=== PATIENT | male | born 1980 | race Caucasian/White ===

== ENCOUNTER 2017-11-05 15:30 | Inpatient (IN) | payer OTHER, MEDICAID ==
[~2017-11-05] VITALS: Ht 188 cm; Wt 74.8 kg
[~2017-11-05 15:30] MED LIST: HYDROCODON-ACE1 EAC8 PO; TAMSULOSIN HCL0.4 MG PO; TRAMADOL 50 MG50 MG PO
[2017-11-05 15:41] VITALS: BP 150/87
[2017-11-05 16:19] LABS: INFLUENZA A ANTIGEN None Detected (None Detect); INFLUENZA B ANTIGEN None Detected (None Detect)
[2017-11-05 16:20] LABS: ABSOLUTE BASOPHILS 0.1 thou/uL (0.0-0.2); ABSOLUTE LYMPHOCYTES 1.4 thou/uL (0.8-5.3); ABSOLUTE MONOCYTES 0.9 thou/uL (0.0-1.2); ABSOLUTE NEUTROPHILS 11.3 thou/uL (1.6-8.1); BASOPHILS 0.6 %; EOSINOPHILS 0.2 %; HEMATOCRIT 41.4 % (42.0-52.0); HEMOGLOBIN 14.2 gm/dL (14.0-18.0); MCH 35.4 pg (26.0-34.0); MCHC 34.2 g/dL (28.0-37.0); MCV 103.5 fL (80.0-100.0); MONOCYTES 6.9 %; MPV 8.1 fl. (7.2-11.1); NUCLEATED RBCS 0 /100WBC; PLATELET COUNT* 249 thou/uL (150-400); POLYS 82.3 %; RDW-CV 15.7 % (10.5-14.5); WBC 13.8 thou/uL (4.0-11.0)
[2017-11-05 16:28] LABS: AMP/METHAMP Negative (Negative); BARBITURATES Negative (Negative); BENZODIAZEPINES Negative (Negative); COCAINE Negative (Negative); METHADONE Negative (Negative); OPIATES Negative (Negative); PCP Negative (Negative); THC POSITIVE (Negative)
[2017-11-05 16:47] LABS: ACETAMINOPHEN < 2 ug/mL (10-30); ALCOHOL < 10 mg/dL (<10); SALICYLATE < 2.8 mg/dL (2.8-20.0)
[2017-11-05 16:51] LABS: ALBUMIN 2.6 g/dL (3.4-5.0); CALCIUM 7.8 mg/dL (8.5-10.1); CREATININE 1.7 mg/dL (0.6-1.3); POTASSIUM 3.1 mmol/L (3.5-5.1); TOTAL BILIRUBIN 1.8 mg/dL (<0.1-1.0)
[2017-11-05 17:08] LABS: BE -17.3 mmol/L (-2 to +3); PCO2 < 17.0 mmHg (35.0-45.0); PO2 119.2 mmHg (75.0-100.0); pH 7.306 (7.340-7.450)
[2017-11-05 17:16] LABS: INR 1.1; PROTIME 10.5 Seconds (9.20-11.50)
[2017-11-05 18:14] LABS: URINE BILIRUBIN NEGATIVE (Negative); URINE BLOOD 1+ (Negative); URINE CLARITY CLEAR; URINE COLOR YELLOW; URINE GLUCOSE-RANDOM NEGATIVE (Negative); URINE KETONES 1+ (Negative); URINE LEUKOCYTES-REFLEX NEGATIVE (Negative); URINE NITRITE-REFLEX NEGATIVE (Negative); URINE PROTEIN TRACE (Negative); URINE SPECIFIC GRAVITY >= 1.030 (1.005-1.030); URINE UROBILINOGEN 0.2 E.U./dl (0.2-1.0)
[2017-11-05 18:23] LABS: SQUAMOUS 0-3 Few /LPF (0-3)
[2017-11-05 18:24] LABS: BACTERIA-REFLEX None Seen /HPF (None Seen); CASTS None Seen /LPF (None Seen); CRYSTALS None Seen /LPF (None Seen); MUCUS 0-3 Light strn/LPF (None Seen); URINE RBC 0-2 Rare /HPF (0-2); URINE WBC-REFLEX None Seen /HPF (0-5)
[2017-11-05 19:27] LABS: MAGNESIUM 1.2 mg/dL (1.8-2.4)
[2017-11-05 19:56] VITALS: BP 136/84
[2017-11-05 20:15] VITALS: BP 136/76
[2017-11-05 21:00] VITALS: BP 111/85
[2017-11-05 22:00] VITALS: BP 133/83
[2017-11-05 23:00] VITALS: BP 127/79
[2017-11-05 23:48] LABS: CALCIUM 6.7 mg/dL (8.5-10.1); CREATININE 1.5 mg/dL (0.6-1.3); POTASSIUM 3.3 mmol/L (3.5-5.1)
[2017-11-06] VITALS (23 sets, daily range): BP systolic 88–121; BP diastolic 36–79
[2017-11-06 00:15] LABS: PHOSPHORUS* 4.5 mg/dL (2.5-4.9); URIC ACID* 10.1 mg/dL (2.6-7.2)
[2017-11-06 03:35] LABS: HEMATOCRIT 32.6 % (42.0-52.0); MCH 36.6 pg (26.0-34.0); MCHC 35.3 g/dL (28.0-37.0); MCV 103.7 fL (80.0-100.0); MPV 7.8 fl. (7.2-11.1); NUCLEATED RBCS 0 /100WBC; RBC 3.14 mil/uL (4.50-6.00); RDW-CV 15.4 % (10.5-14.5); WBC 10.4 thou/uL (4.0-11.0)
[2017-11-06 03:47] LABS: CALCIUM 6.4 mg/dL (8.5-10.1); CREATININE 1.4 mg/dL (0.6-1.3); MAGNESIUM 2.3 mg/dL (1.8-2.4); POTASSIUM 3.3 mmol/L (3.5-5.1)
[2017-11-06 03:48] LABS: HEMOGLOBIN 11.5 gm/dL (14.0-18.0); PLATELET COUNT* 169 thou/uL (150-400)
[2017-11-06 06:25] LABS: ABSOLUTE LYMPHOCYTES 1.2 thou/uL (0.8-5.3); ABSOLUTE MONOCYTES 0.1 thou/uL (0.0-1.2)
[2017-11-06 06:26] LABS: ANISOCYTOSIS 1+; PLATELET ESTIMATE ADEQUATE; POIKILOCYTOSIS 1+
[2017-11-06 09:07] LABS: BE 1.6 mmol/L (-2 to +3); HCO3 23.6 mmol/L (22.0-26.0); PO2 74.3 mmHg (75.0-100.0); pH 7.528 (7.340-7.450)
[2017-11-06 09:38] LABS: ALBUMIN 1.8 g/dL (3.4-5.0); CALCIUM 6.2 mg/dL (8.5-10.1); CREATININE 1.1 mg/dL (0.6-1.3); DIRECT BILIRUBIN 0.6 mg/dL (<0.1-0.3); MAGNESIUM 1.9 mg/dL (1.8-2.4); POTASSIUM 3.5 mmol/L (3.5-5.1); TOTAL BILIRUBIN 1.4 mg/dL (<0.1-1.0); TOTAL PROTEIN 4.8 g/dL (6.4-8.2); URIC ACID* 8.7 mg/dL (2.6-7.2)
--- NOTE | 2017-11-06 13:33 | EKG ---
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
--- NOTE | 2017-11-06 14:02 | 2DMMODE ---
[place] [address] 2 D/M-MODE ECHOCARDIOGRAM Name: MARIA M BETTS Room: [facility] IN [facility]#: [id number] Admission: 11/05/17 Attend Phys: Debra Cast Discharge: Date of : 80 Date of Service: 11/06/17 1401 Report #: [id number] THIS REPORT FOR: //name// APPROVED REPORT Study performed: 11/06/2017 10:49:54 EXAM: Comprehensive 2D, Doppler, and color-flow Echocardiogram Patient Location: In-Patient Room #: [facility] Status: routine BSA: 1.92 HR: 117 bpm BP: 106/74 mmHg Rhythm: NSR Other Information Study Quality: Good Indications Congestive Heart Failure 2D Dimensions LVEF(%): 79.30 (>50%) IVSd: 8.40 (7-11mm) LVOT Diam: 20.22 (18-24mm) LVDd: 51.75 mm PWd: 9.15 (7-11mm) Ascending Ao: 32.11 (22-36mm) LVDs: 26.80 (25-40mm) Aortic Root: 34.59 mm Ware's LVEF: 79.30 % Volumes Left Atrial Volume (Systole) LA ESV Index: 15.90 mL/m2 Aortic Valve AoV Peak Ty.: 1.52 m/s AO Peak Gr.: 9.26 mmHg LVOT Max P.05 mmHg AO Mean Gr.: 4.75 mmHg LVOT Mean P.04 mmHg LVOT Max V: 1.33 m/s AO V2 VTI: 21.55 cm LVOT Mean V: 0.79 m/s BRYAN (VTI): 3.01 cm2 LVOT V1 VTI: 20.18 cm Mitral Valve E/A Ratio: 1.17 [place] [address] 2 D/M-MODE ECHOCARDIOGRAM Name: MARIA M BETTS Room: [address] IN .R.#: [id number] Admission: 11/05/17 Attend Phys: Debra Cast Discharge: Date of : 80 Date of Service: 11/06/17 1401 Report #: [id number] MV Decel. Time: 281.78 ms MV E Max Ty.: 0.90 m/s MV PHT: 81.72 ms MVA (PHT): 2.69 cm2 TDI E/Lateral E': 8.18 E/Medial E': 6.92 Medial E' Ty.: 0.13 m/s Lateral E' Ty.: 0.11 m/s Pulmonary Valve PV Peak Ty.: 1.19 m/s PV Peak Gr.: 5.71 mmHg Left Ventricle The left ventricle is normal size. There is normal LV segmental wall motion. There is normal left ventricular wall thickness. Left ventricular systolic function is normal. The left ventricular ejection fraction is within the normal range. LVEF is 60-65%. The left ventricular diastolic function is normal. Right Ventricle The right ventricle is normal size. The right ventricular systolic function is normal. Atria The left atrium size is normal. The right atrium size is normal. Aortic Valve The aortic valve is normal in structure. No aortic regurgitation is present. There is no aortic valvular stenosis. Mitral Valve The mitral valve is normal in structure. There is no mitral valve regurgitation noted. No evidence of mitral valve stenosis. Tricuspid Valve The tricuspid valve is normal in structure. Unable to assess PA pressure. Trace tricuspid regurgitation. Pulmonic Valve The pulmonary valve is normal in structure. There is no pulmonic valvular regurgitation. Great Vessels The aortic root is normal in size. IVC [place] [address] 2 D/M-MODE ECHOCARDIOGRAM Name: MARIA M BETTS Room: [address] IN M.R.#: [id number] Admission: 11/05/17 Attend Phys: Debra Cast Discharge: Date of : 80 Date of Service: 11/06/17 1401 Report #: [id number] collapses with >50% inspiration Pericardium There is no pericardial effusion. <Conclusion> LVEF is 60-65%. There is normal LV segmental wall motion. No aortic regurgitation is present. There is no aortic valvular stenosis. There is no mitral valve regurgitation noted. No evidence of mitral valve stenosis. <ELECTRONICALLY SIGNED> By: Cruz Comer MD, FACC 11/06/17 140 140 140 Cruz Comer MD, FACC /INF
[2017-11-06 17:12] LABS: GLYCOHEMOGLOBIN (HGB A1C) 5.1 % (4.8-5.6)
[2017-11-06 17:12] LABS: IgA 601 mg/dL (90-386); IgG 782 mg/dL (700-1600); IgM 52 mg/dL (20-172)
[2017-11-07] VITALS (12 sets, daily range): BP systolic 92–122; BP diastolic 53–86
[2017-11-07 05:09] LABS: CALCIUM 6.4 mg/dL (8.5-10.1); CREATININE 0.7 mg/dL (0.6-1.3); MAGNESIUM 1.6 mg/dL (1.8-2.4); PHOSPHORUS* 1.9 mg/dL (2.5-4.9); POTASSIUM 3.3 mmol/L (3.5-5.1); TOTAL BILIRUBIN 1.5 mg/dL (<0.1-1.0); TOTAL PROTEIN 4.9 g/dL (6.4-8.2); URIC ACID* 6.2 mg/dL (2.6-7.2)
--- NOTE | 2017-11-07 13:55 | CON ---
[address] [address] CONSULTATION Name: MARIA M BETTS Room: [address] IN M.R.#: [id number] Admission: 11/05/17 Attend Phys: Alessandra Evans Discharge: Date of : 80 Report #: [id number] THIS REPORT FOR: //name// CC: EDY physician/PCP Debra Cast LOCATION: The patient is in ICU bed 5 at [facility]. REASON FOR CONSULTATION: I am asked to see this 37-year-old gentleman at the request of Dr. Cast for acute kidney injury. CHIEF COMPLAINT: Pain. HISTORY OF PRESENT ILLNESS: He came to the ED complaining of pain in his lower extremities for a couple of weeks. He also was short of air. He said he got to the point where he could not even walk a few steps. PAST MEDICAL HISTORY: Facial laceration. He has a history of kidney stones. He has had shoulder surgery. He has fatty infiltration of the liver on CT scan. FAMILY HISTORY: Positive for COPD and tobacco use. No renal diseases in family members. SOCIAL HISTORY: He is an everyday tobacco user. He smokes cigarettes. He has a 1/2 pack per day use. ALLERGIES: MEPERIDINE, BUTORPHANOL TARTRATE AND KETOROLAC. HOME MEDICATIONS: Tramadol 50 mg t.i.d. p.r.n., not presently taking. REVIEW OF SYSTEMS: HEENT: He has had no recent changes in vision or hearing. CARDIAC: He has a history of hypertension. No other cardiovascular diseases. PULMONARY: He has been short of air with any exertion. GASTROINTESTINAL: No nausea, vomiting, diarrhea. Does show some slight guarding. GENITOURINARY: Acute kidney injury, albeit mild. He has never had to dialyze in the past. He does have a history of kidney stones. He has had no difficulty voiding. No problems recently over the past few years with his kidney stones. HEMATOLOGIC AND LYMPHATIC: The patient is not anemic. He does have a leukocytosis of 13,800; platelets are 249,000. MUSCULOSKELETAL: Nontender. ENDOCRINE: Negative for hypothyroidism or known diabetes. PSYCHIATRIC: Negative, but there is some possible history of excessive alcohol intake. NEUROLOGIC: He has had no TIA, CVA, Parkinson disease [place] [address] CONSULTATION Name: MARIA M BETTS Room: [address]#: [id number] Admission: 11/05/17 Attend Phys: Alessandra Evans Discharge: Date of : 80 Report #: [id number] PHYSICAL EXAMINATION: VITAL SIGNS: At present show a temperature of 36.9, heart rate in the low 100s, respirations 15, blood pressure 114/74. He has a pulse oximetry of 94%. His intake and output 4693 in, 950 out thus far today. HEENT: He is atraumatic, normocephalic. NECK: Supple. CHEST: Clear. HEART: S1, S2, no rubs. ABDOMEN: Soft, distended, but normal bowel sounds. No masses. EXTREMITIES: Show good perfusion, no edema. Negative Homans. NEUROLOGIC: Cranial nerves, sensory, motor appear to be at his baseline. Remainder of his exam is unremarkable except for some delayed responses and perhaps some encephalopathy. LABORATORY DATA: Shows a white count of 10,400; hemoglobin 11.5; hematocrit 32.6; platelets 169,000. Coags show a PT of 10.5, INR 1.1. Urine shows a trace of protein, 1+ ketones, 1+ blood, negative for nitrites, bilirubin, urobilinogen, rbc's, wbc's and squamous cells. His C. diff toxin gene is ordered and pending. Most recent ABG: A pH 7.30, pCO2 less than 17, bicarbonate 6, O2 sat 96.7%. His lipase is 338. Vitamin B12 of 926. Albumin 2.6. Troponin less than 0.06. Ammonia level 23. CK down to 587. Liver function studies are not increased. Magnesium 1.2 and low calcium 7.8, phosphorus 5.0. IMPRESSION: 1. Acute kidney injury in the setting of lactic acidosis and hypotension and decreased renal perfusion. 2. Sepsis syndrome, source unclear. 3. Rhabdomyolysis with elevated CPK. 4. Acute kidney injury due to rhabdomyolysis, hypotension and decreased renal perfusion. 5. Electrolyte disturbance including hypokalemia, hypomagnesemia. 6. Volume depletion. PLAN: Creatinine is already down to 1.1. He is improving. He is, however, requiring some pressors at this time. His blood pressure dipped into the 70s. I am not sure what set this off, certainly as he is awakening, he is telling me more and it appears that he did not have much to eat or drink for several days. At this point, would continue pressors, fluid resuscitation and follow labs. Apparently, there is a significant amount of alcohol intake and he does have fatty liver per his CT scan. His hemoglobin is low normal range at 11.4, [facility] [address] [place] [address] CONSULTATION Name: MARIA M BETTS Room: [address] IN [facility].#: [id number] Admission: 11/05/17 Attend Phys: Alessandra Evans Discharge: Date of : 80 Report #: [id number] hematocrit 32.6, white count 10,400, platelets adequate. IgG, IgA, IgM and JASON studies are pending. Further recommendations will follow. <ELECTRONICALLY SIGNED> By: Dee Dee Foster MD 11/07/17 1355 1650 [id number] Dee Foster MD /nt
[2017-11-07 14:51] LABS: HEMOGLOBIN 10.4 gm/dL (14.0-18.0); MCH 36.6 pg (26.0-34.0); MCHC 34.6 g/dL (28.0-37.0); MCV 105.7 fL (80.0-100.0); MPV 8.9 fl. (7.2-11.1); RBC 2.83 mil/uL (4.50-6.00); RDW-CV 15.8 % (10.5-14.5); WBC 8.3 thou/uL (4.0-11.0)
[2017-11-08] VITALS: BP 117/76
[2017-11-08 04:00] VITALS: BP 134/86
[2017-11-08 06:46] LABS: HEMATOCRIT 29.1 % (42.0-52.0); HEMOGLOBIN 10.2 gm/dL (14.0-18.0); MCH 36.6 pg (26.0-34.0); MCHC 34.9 g/dL (28.0-37.0); MCV 104.9 fL (80.0-100.0); MPV 8.5 fl. (7.2-11.1); RBC 2.77 mil/uL (4.50-6.00); RDW-CV 15.1 % (10.5-14.5); WBC 7.4 thou/uL (4.0-11.0)
[2017-11-08 06:55] LABS: INR 1.1; PROTIME 10.6 Seconds (9.20-11.50)
[2017-11-08 07:00] LABS: ALBUMIN 2.1 g/dL (3.4-5.0); CREATININE 0.6 mg/dL (0.6-1.3); MAGNESIUM 1.7 mg/dL (1.8-2.4); POTASSIUM 3.6 mmol/L (3.5-5.1); TOTAL BILIRUBIN 1.2 mg/dL (<0.1-1.0); TOTAL PROTEIN 5.2 g/dL (6.4-8.2)
[2017-11-08 08:05] VITALS: BP 125/88
[2017-11-08 12:15] VITALS: BP 149/82
[2017-11-08 17:20] LABS: % SATURATION 22 % (20-39); IRON 31 ug/dL (50-175)
[2017-11-08 17:25] VITALS: BP 119/79
[2017-11-08 20:00] VITALS: BP 106/48
[2017-11-09 00:02] VITALS: BP 113/73
[2017-11-09 04:00] VITALS: BP 120/75
[2017-11-09 07:56] VITALS: BP 114/78
[2017-11-09 09:10] LABS: GLOBULIN TOTAL 2.4 g/dL (2.2-3.9); M-SPIKE Not Observed g/dL (Not Observed)
--- NOTE | 2017-11-09 10:39 | CON ---
[address] [address] CONSULTATION Name: MARIA M BETTS Room: [address] IN M.R.#: [id number] Admission: 11/05/17 Attend Phys: Alessandra Evans Discharge: Date of : 80 Report #: [id number] THIS REPORT FOR: //name// CC: EDY physician/PCP Debra Cast DATE OF SERVICE: 11/06/2017 HISTORY OF PRESENT ILLNESS: This is a 37-year-old male patient who indicates that he started getting weak in all 4 extremities about a month ago or maybe longer than that. He is a very poor and somewhat reluctant historian. He indicates these ambulation difficulties started spontaneously without any trauma. He was still able to go to the bathroom by holding on to something. 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 He drinks significant amount of alcohol. I cannot tell how much he actually drank because he will not give me an exact figure. He said couple of drinks a day, but the family has indicated it is more than that and his laboratory will correlate with family's history. REVIEW OF SYSTEMS: Indicate that this patient is pretty profoundly weak in all 4 extremities. He apparently was admitted with lactic acidosis and do have rhabdo. He does not know whether he is any better or not. He had some nausea, vomiting also before he came in. This is the 14-point review of systems, which I can get on him. PAST MEDICAL HISTORY: Negative for any stroke. FAMILY HISTORY: According to him is negative for any congenital epilepsy. SOCIAL HISTORY: He drinks alcohol daily. He would not specify how much he drinks. He also smokes. PHYSICAL EXAMINATION: Indicated he is pretty sleepy, but he wakes up. When he wakes up, he follow commands. His speech looks intact, but he is not very cooperative with the examination otherwise. He is very reluctant to talk about how much alcohol he drinks and those things. He moves all 4 extremities, but he is pretty profoundly weak in all 4 extremities. His position sense is intact and he says he can appreciate the touch in all 4 extremities. So it appeared to be predominantly or exclusively motor deficit. His reflexes could not be elicited in the lower extremities. His blood pressure is 114/71, respirations 17, pulse is 111. His MCV is high. His bilirubin is high. His HD is high. His CPK and LD is high. His albumin is very low at 1.8. IMPRESSION: This patient's clinical presentation is consistent with diffuse polyneuropathy. It is most likely secondary to his heavy alcoholism. Other etiologies need to [place] [address] CONSULTATION Name: MARIA M BETTS Room: [address] IN .R.#: [id number] Admission: 11/05/17 Attend Phys: Alessandra Evans Discharge: Date of : 80 Report #: [id number] I discussed with the patient his situation that he must live a healthy lifestyle. He understands that I would like to do a CT of the head and neck and later on may have to do an MRI, but we will also see how he does with supportive treatment for alcohol withdrawal. I told him that he needs to be manuel and the consequences which can occur if he is not manuel with the history. It is going on for a month or longer. He needs further workup and I also think he needs EMG, but we do not have a machine here. I also talked to him that he may need LP because it will be difficult to exclude Guillain-Scottdale syndrome. He needs B1 and thiamine, which he is already getting. RECOMMENDATIONS: I discussed all of it with the patient and discussed our plan and the limitations and he understood all those and he wants to follow this plan and we will do that. Thank you very much for this referral. <ELECTRONICALLY SIGNED> By: Ochoa Mcgill MD 11/09/17 1039 1517 08Ochoa Mcgill MD /natalie
[2017-11-09 12:29] VITALS: BP 134/89
[2017-11-09 19:12] LABS: METANEPHRINE-PL 102 pg/mL (0-62); NORMETANEPHRINE - PL 528 pg/mL (0-145)
[2017-11-09 20:00] VITALS: BP 133/90
[2017-11-10 00:03] VITALS: BP 117/76
[2017-11-10 04:00] VITALS: BP 112/74
[2017-11-10 08:00] VITALS: BP 144/83
[2017-11-10 12:00] VITALS: BP 133/89
[2017-11-10 16:00] VITALS: BP 132/78
[2017-11-10 20:00] VITALS: BP 140/83
[2017-11-11] VITALS: BP 121/78
[2017-11-11 04:00] VITALS: BP 140/79
[2017-11-11 08:00] VITALS: BP 124/77
[2017-11-11 09:58] LABS: KAPPA FREE LIGHT CHAINS 31.3; LAMBDA FREE LIGHT CHAINS 39.8
[2017-11-11 12:00] VITALS: BP 140/92
[2017-11-11 16:00] VITALS: BP 129/89
[2017-11-11 19:47] VITALS: BP 127/85
[2017-11-12] VITALS (7 sets, daily range): BP systolic 108–126; BP diastolic 70–87
[2017-11-12 05:38] LABS: HEMATOCRIT 30.6 % (42.0-52.0); HEMOGLOBIN 10.6 gm/dL (14.0-18.0); MCHC 34.5 g/dL (28.0-37.0); MCV 104.2 fL (80.0-100.0); MPV 8.7 fl. (7.2-11.1); PLATELET COUNT* 225 thou/uL (150-400); RBC 2.93 mil/uL (4.50-6.00); RDW-CV 15.6 % (10.5-14.5); WBC 7.7 thou/uL (4.0-11.0)
[2017-11-12 05:58] LABS: ALBUMIN 1.8 g/dL (3.4-5.0); CALCIUM 8.4 mg/dL (8.5-10.1); CREATININE 0.7 mg/dL (0.6-1.3); MAGNESIUM 1.6 mg/dL (1.8-2.4); POTASSIUM 3.4 mmol/L (3.5-5.1); TOTAL BILIRUBIN 0.8 mg/dL (<0.1-1.0)
[2017-11-12 07:07] LABS: ABSOLUTE BASOPHILS 0.1 thou/uL (0.0-0.2); ABSOLUTE LYMPHOCYTES 1.9 thou/uL (0.8-5.3); ABSOLUTE MONOCYTES 0.7 thou/uL (0.0-1.2); MACROCYTES 1+; PLATELET ESTIMATE ADEQUATE
[2017-11-12 16:12] LABS: MAGNESIUM 2.2 mg/dL (1.8-2.4); POTASSIUM 3.6 mmol/L (3.5-5.1)
[2017-11-12 16:16] LABS: BF RBC <1000 /mm3; TOTAL CELL COUNT 759 /mm3
[2017-11-12 16:17] LABS: COLOR YELLOW; TOTAL VOLUME 500 ml
[2017-11-12 16:18] LABS: CLARITY CLEAR
[2017-11-12 16:29] LABS: BF EOSINOPHILS 1 %; BF LYMPHOCYTES 45 %; BF MONOCYTES 31 %; BF POLYS 23 %; SOURCE LEFT PLEURAL
[2017-11-13 04:00] VITALS: BP 119/80
[2017-11-13 07:45] VITALS: BP 111/78
--- NOTE | 2017-11-13 08:45 | CON ---
[address] [address] CONSULTATION Name: MARIA M BETTS Room: [address] IN M.R.#: [id number] Admission: 11/05/17 Attend Phys: Alessandra Evans Discharge: Date of : 80 Report #: [id number] THIS REPORT FOR: //name// CC: [facility] physician/PCP Jada Cast MD PULMONARY CONSULTATION ATTENDING PHYSICIAN: Debra Cast MD INDICATION FOR CONSULTATION: Pleural effusions and fever. CLINICAL SUMMARY: The patient is a 37-year-old male, a smoker and drinker was admitted to the hospital about a week ago after a 3-week history of shortness of breath and also some atypical pleuritic chest pain. He has had some proximal leg weakness. He feels like his legs are getting weaker getting up and moving off the couch, trying to walk up flight of stairs or walk to the bus station. 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 He came in dehydrated with hemoglobin of myoglobinuria and his creatinine was 1.6. CK was elevated. He was given IV fluids. Urine output improved and his creatinine normalized. His CK also normalized. Chest x-ray on 11/07/2017 showed central line in place, also with bilateral small pleural effusions. He had a CT of the chest done yesterday on 11/11/2017 and he had moderate to moderately large right pleural effusion and then mild to moderate left pleural effusion. There was 5.8 cm from the skin to lung tissue on the right, effusion and 3.6 cm on the left. The patient is worse when he lies down and tries to take a good deep breath. He has had an occasional dry cough. He denies any fever, chills or sweats. It should be noted that his chest x-ray on 11/05/2017 was totally within normal limits other than having a central line in place. No troubles with the central line. He is due for a diagnostic and therapeutic right-sided thoracentesis this afternoon and possibly left-sided thoracentesis at some point in time. He has had some abdominal pain, which also brought him in. CT of the abdomen and pelvis other than showing a diffuse fatty liver was relatively unremarkable. No significant adenopathy was noted. PAST MEDICAL HISTORY: He has had abdominal pain. He has had previous facial laceration. He has had nausea and vomiting. He has had rhabdomyolysis, sepsis syndrome. ALLERGIES: He has allergies or intolerance from STADOL, which gives him nausea. Also, TORADOL, which gives him nausea and then MEPERIDINE from DEMEROL again which gave him nausea. No definite skin rash or reactions noted otherwise. FAMILY HISTORY: Negative [place] [address] CONSULTATION Name: MARIA M BETTS Room: [address] IN .R.#: [id number] Admission: 11/05/17 Attend Phys: Alessandra Evans Discharge: Date of : 80 Report #: [id number] SOCIAL HISTORY: He is . He lives on his own. He describes himself as a couch potato, does not get up and move very much. 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 He drinks about a half a pint to a pint of liquor every day and also smokes about a half pack of cigarettes every day. He has done that for the last 20 years. Would not delineate length of time drinking. REVIEW OF SYSTEMS: A 14-point review of systems reviewed and negative except for pertinent positives noted in the HPI. PHYSICAL EXAMINATION: GENERAL: A 37-year-old male who is in mild distress at the bedside. Other than that is cooperative and oriented to person, place and time and talk to me in full sentences. VITAL SIGNS: Blood pressure is 126/84 on no pressors, heart rate is 104, respirations are 16 on a backup rate of 16, saturation on 3 liters is 94%, temperature is 36.7 degrees. He is 6 feet 2 inches tall, weight 76 kilograms or 162 pounds, BMI is 21. HEENT: Pharynx is clear. No rash or exudate is noted. NECK: Supple, without nodes. No cervical or supraclavicular adenopathy. CHEST: Reveals dullness at the right lung base about a third of the way up and about a fourth of the way up. The left chest shows dullness with decreased breath sounds and decreased tactile fremitus. No wheeze or rhonchi is noted. CARDIOVASCULAR: Regular rate and rhythm without murmur, gallop or rub. Heart rate is 104. ABDOMEN: Soft, without hepatosplenomegaly. No ascites noted. EXTREMITIES: Without cyanosis, clubbing or edema. NEUROLOGIC: Grossly intact. LABORATORY DATA: From today, 11/12/2017 shows hemoglobin 10.6, white count 7700, MCV is 104, platelets are 225,000; previous platelets were 130,000; normal differential was noted. ESR is 69 from a day or so ago. Sodium is 135, potassium is 3.4 being repleted, carbon dioxide is 25, BUN is 6, creatinine is 0.7. Previous creatinine was 1.6, calcium is 8.4, magnesium is 1.6, albumin is down to 1.8, total protein 6.0, and ALT is low at 21. Previous ABG upon admit when he is breathing on room air showed a pO2 of 119, a pH of 7.30, pCO2 was 20, bicarbonate was 6, his base excess was negative 17, and O2 sat was 96%. Then, repeat on 11/06/2017 at 9:00 a.m. in the morning, pO2 of 74, pH 7.52, pCO2 is 29, bicarbonate was 23, and sat was 94%. Carboxyhemoglobin was only 0.3, methemoglobin was 0.1. Chest x-ray again from 11/05/2017 was within normal limits. On 11/07/2017, lines were in place without pneumothorax and he has small bilateral pleural effusions at that time and small bibasilar infiltrates, and then CT of the chest from yesterday which I reviewed with radiology shows moderate to large right pleural effusion and moderate left pleural effusion again with above-noted. No significant adenopathy is noted on the CT chest in the mediastinal or hilar adenopathy and even on the CT abdomen when he was admitted, no significant ascites [place] [address] CONSULTATION Name: MARIA M BETTS Room: [address] ADM IN .R.#: [id number] Admission: 11/05/17 Attend Phys: Alessandra Evans Discharge: Date of : 80 Report #: [id number] retroperitoneal adenopathy was noted. IMPRESSION: New onset bilateral pleural effusions, etiology unclear, could be either related to fluid overload, even though his echocardiogram was normal, no pulmonary hypertension. Other possibilities whether this is fever and parapneumonic effusion, I doubt lymphoma or anything malignant at least at this time with a rapid onset of his effusions, but we will keep that as a possibility. Again, no definite evidence for lymphoma at least at this time. PLAN: He is going to undergo a diagnostic and therapeutic right-sided thoracentesis afternoon, possibly left-sided also. We will send chemistries and cultures and cytology and workup his pleural effusions. If they recur and come back, he may need a right-sided VATS for tissue diagnosis and possibly therapeutic. May need a course of steroids at some point in time, but we will continue follow after he has his pleural effusion tapped and we get the cultures back. Obviously needs to discontinue smoking and drinking. I discussed that with him today in the consult. May need a trial of incentive spirometry. Again, I am not sure whether steroid trial will be useful or not at least at this time. We will wait and see what the pleural fluid shows first. May need a workup for collagen vascular abnormalities, also with the diagnosis remains elusive. Thanks again for allowing us to participate in this man's care. We will follow up along with you. <ELECTRONICALLY SIGNED> By: Abdiel Cordero MD 11/13/17 0845 1415 [id number] Cordero MD /nt
[2017-11-13 10:12] LABS: BODY FLUID AMYLASE 20 U/L (()); BODY FLUID LDH 202 IU/L (()); BODY FLUID PROTEIN 2.4 g/dL (())
[2017-11-13 10:12] LABS: BODY FLUID AMYLASE 21 U/L (()); BODY FLUID LDH 183 IU/L (())
[2017-11-13 12:06] LABS: BODY FLUID PH 7.8 (Not Estab.)
[2017-11-13 12:06] LABS: BODY FLUID PH 7.9 (Not Estab.)
[2017-11-13 15:11] LABS: DOPAMINE 384 pg/mL (0-48); EPINEPHRINE 80 pg/mL (0-62); NOREPINEPHRINE 1765 pg/mL (0-874)
[2017-11-13 16:21] VITALS: BP 116/73
[2017-11-13 21:00] VITALS: BP 126/86
[2017-11-13 23:48] VITALS: BP 117/80
[2017-11-14] MEDS ORDERED: PRENATAL PO (07:24)
[2017-11-14] MEDS ORDERED: VITAMIN B-1100 M1 PO (07:24)
[2017-11-14] MEDS ORDERED: AUGMENTIN 875-1 EACH PO (07:27)
[2017-11-14 08:00] VITALS: BP 124/83
[2017-11-14 09:53] VITALS: BP 124/83
[2017-11-14 12:47] VITALS: BP 124/83
--- NOTE | 2017-11-14 12:49 | CNG ---
[address] [address] CYTO-NONGYN REPORT PROCEDURE Name: MARIA M SOLER Room: [address] IN [facility].#: [id number] Admission: 11/05/17 Date of : 80 Discharge: Report #: [id number] Path Case #: [id number] CYTOPATHOLOGY REPORT COLLECTION DATE: 11/11/2017 RECEIVED DATE: 11/13/2017 SUBMITTING PHYS: Dr. Brian Cedeno OTHER PHYS: Dr. Jak Vásquez CLINICAL HISTORY: Left pleural effusion SPECIMEN(S) RECEIVED: A.Pleural fluid, Left * * * * * * * * * * * * FINAL DIAGNOSIS: Pleural fluid, left: - No malignant cells identified. - Reactive mesothelial cells and few inflammatory cells, predominantly chronic. (CATY:mgr; 11/14/2017) PATHOLOGIST: Jaret Lopez M.D. REPORT ELECTRONICALLY SIGNED BY: Jaret Lopez M.D. DATE/TIME: 11/14/2017 12:48 * * * * * * * * * * * * GROSS PATHOLOGY: A. Pleural fluid, Left: The specimen is submitted unfixed, labeled "SolerMaria M baires". Received by the Cytology Department is 62 mL of cloudy yellow fluid. One ThinPrep slide and a formalin fixed cell block were prepared. (lg2.) MICROFILMING DOCUMENT PREPARER(S): LEONA Tirado([facility]) INITIAL CPT CODE(S): A; 62261, 00971 Professional services performed by [facility] at [facility] [address] [place] [address] Technical services performed by [facility] at [address] [place] [address], [address], [place] [address]. [facility] [address] [place] [address], [address] [address] CYTO-NONGYN REPORT PROCEDURE Name: MARIA M SOLER Room: [address] IN M.R.#: [id number] Admission: 11/05/17 Date of : 80 Discharge: Report #: [id number] Path Case #: [id number] [place] [address] PHONE: [phone] DIRECTOR: Parag Rodriguez M.D. * * * END OF REPORT * * *
--- NOTE | 2017-11-14 13:43 | CNG ---
[address] [address] CYTO-NONGYN REPORT PROCEDURE Name: MARIA M SOLER Room: [address] IN .R.#: [id number] Admission: 11/05/17 Date of : 80 Discharge: 11/14/17 Report #: [id number] Path Case #: [id number] CYTOPATHOLOGY REPORT COLLECTION DATE: 11/12/2017 RECEIVED DATE: 11/13/2017 SUBMITTING PHYS: Dr. Brian Cedeno OTHER PHYS: Dr. Jak Vásquez CLINICAL HISTORY: Lactic acidosis, Rhabdo, severe sepsis SPECIMEN(S) RECEIVED: A.Pleural fluid, Right * * * * * * * * * * * * FINAL DIAGNOSIS: Pleural fluid, right: - No malignant cells identified. - Reactive mesothelial cells and few inflammatory cells, predominantly chronic. (CATY:mgr; 11/14/2017) PATHOLOGIST: Jaret Lopez M.D. REPORT ELECTRONICALLY SIGNED BY: Jaret Lopez M.D. DATE/TIME: 11/14/2017 13:42 * * * * * * * * * * * * GROSS PATHOLOGY: Pleural fluid, right: The specimen is submitted unfixed, labeled "Maria M Soler". Received by the Cytology Department is 35 mL out of a total volume of 800 cc of cloudy yellow fluid. One ThinPrep slide and a formalin fixed cell block were prepared. (mm 2.) CHILDCARE AIDE(S): LEONA Tirado[facility] INITIAL CPT CODE(S): A; 70299, 96341 Professional services performed [place] [facility] [place] [address] Technical services performed by [facility] at [address] [place] [address], [address] [address]. [place] [address] CYTO-NONGYN REPORT PROCEDURE Name: MARIA M SOLER Room: [address] IN M.R.#: [id number] Admission: 11/05/17 Date of : 80 Discharge: 11/14/17 Report #: [id number] Path Case #: [id number] [place] [address] [address] [place] [address] PHONE: [phone] DIRECTOR: Parag Rodriguez M.D. * * * END OF REPORT * * *
[2017-11-15 12:03] LABS: SOURCE THORACENTESIS
[2017-11-15 12:04] LABS: SOURCE THORACENTESIS
[2017-11-15 12:04] LABS: SOURCE THORACENTESIS
--- NOTE | 2017-11-17 13:57 | CON ---
[address] [address] CONSULTATION Name: MARIA M BETTS Room: [address] IN M.R.#: [id number] Admission: 11/05/17 Attend Phys: Alessandra Evans Discharge: 11/14/17 Date of : 80 Report #: [id number] THIS REPORT FOR: //name// CC: ED[facility] physician/PCP Debra Cast DATE OF SERVICE: 11/09/2017 REASON FOR CONSULTATION: Elevated IgA. REQUESTING PHYSICIAN: Dr. Cast. HISTORY OF PRESENT ILLNESS: The patient is a pleasant 37-year-old man with a history of alcohol abuse who was admitted to the hospital with complaints of lower extremity weakness. He was found to have findings consistent with rhabdomyolysis and extreme weakness of the lower extremity. Neurology consult was obtained. As a part of workup, his immunoglobulin level checked. IgG and IgM immunoglobulins levels are normal. IgA is elevated. Hematology consult is requested. The patient is feeling okay. His lower extremity weakness is getting better. He does not have complaints of weight loss, fever or chills. He admits having some night sweats last month or so. Denies nausea or vomiting. He has complaints of abdominal bloating. SOCIAL HISTORY: He is . Admits having alcohol problems. He drinks alcohol excessively. PAST MEDICAL HISTORY: Otherwise, unremarkable. PHYSICAL EXAMINATION: GENERAL: Reveals well-developed, well-nourished young man, not in acute distress. Parents at bedside. VITAL SIGNS: Blood pressure 134/89, temperature 99.2, respiration 20, heart rate is 118. HEENT: Does not reveal thrush. NECK: Supple. HEART: Normal S1 and S2. LUNGS: Clear. ABDOMEN: Somewhat distended. No organomegaly is appreciated. LOWER EXTREMITIES: No edema. LABORATORY DATA: Hemoglobin 10.2, white count 7.4, platelets 131, MCV 104.9. BUN 3 and creatinine 0.9. Uric acid 6.2. Total protein 5.2. Albumin 2.1. Serum protein electrophoresis did not show any M-spike. IgG level 782, IgA 601 and IgM 52. ASSESSMENT AND PLAN: Elevated IgA level of unclear [place] [address] CONSULTATION Name: MARIA M BETTS Room: [address] IN [facility]#: [id number] Admission: 11/05/17 Attend Phys: Alessandra Evans Discharge: 11/14/17 Date of : 80 Report #: [id number] electrophoresis does not show M-spike. I am planning to order urine protein electrophoresis and free light chain assay Thank you very much for allowing me to participate in care of this patient. <ELECTRONICALLY SIGNED> By: Jaci Handley MD 11/17/17 1357 [id number] xavi Singh
== END 2017-11-14 12:49 | disposition home or self-care (01) | DRG 872 ==
LOC: M.ERS 15:30 → M.TBA-ER 18:00 → M.ICU 18:00 → M.2W 11-07 15:17 → M.ORTHSURG 11-13 14:46
PROVIDERS: Emergency Medicine; Family Medicine; Internal Medicine; Internal Medicine Hematology & Oncology; Internal Medicine Nephrology; Nurse Practitioner Family; Personal Emergency Response Attendant; ADMIT Internal Medicine
DX: A41.9 Sepsis, unspecified organism (principal); M62.82 Rhabdomyolysis; N17.9 Acute kidney failure, unspecified; E87.2 Acidosis; J90 Pleural effusion, not elsewhere classified; R82.1 Myoglobinuria; R65.20 Severe sepsis without septic shock; E11.9 Type 2 diabetes mellitus without complications; E87.6 Hypokalemia; E83.42 Hypomagnesemia; E86.9 Volume depletion, unspecified; F17.210 Nicotine dependence, cigarettes, uncomplicated; D64.9 Anemia, unspecified; K73.9 Chronic hepatitis, unspecified; G62.1 Alcoholic polyneuropathy; M62.81 Muscle weakness (generalized); F10.10 Alcohol abuse, uncomplicated; F12.10 Cannabis abuse, uncomplicated; G44.40 Drug-induced headache, not elsewhere classified, not intractable; T40.605A Adverse effect of unspecified narcotics, initial encounter; Y92.89 Other specified places as the place of occurrence of the external cause; Z87.442 Personal history of urinary calculi; Z88.8 Allergy status to other drugs, medicaments and biological substances; Z82.5 Family history of asthma and other chronic lower respiratory diseases; Z81.2 Family history of tobacco abuse and dependence; Z23 Encounter for immunization

== ENCOUNTER 2018-01-21 09:25 | Inpatient (IN) | payer OTHER, MEDICAID ==
[~2018-01-21] VITALS: Ht 188 cm; Wt 81.6 kg
[~2018-01-21 09:25] MED LIST changes: +AUGMENTIN 875-1 EACH PO; +PRENATAL PO; +VITAMIN B-1100 M1 PO
[2018-01-21 09:45] VITALS: BP 114/90
[2018-01-21 12:21] LABS: ALBUMIN 1.6 g/dL (3.4-5.0); ANION GAP 24 mmol/L (7-16); CALCIUM 8.2 mg/dL (8.5-10.1); CHLORIDE 93 mmol/L (98-107); CO2 21 mmol/L (21-32); CREATININE 0.7 mg/dL (0.6-1.3); GLUCOSE 146 mg/dL (70-99); NT-PRO BRAIN NAT PEPTIDE 23 pg/mL (<300); POTASSIUM 4.5 mmol/L (3.5-5.1); SODIUM 138 mmol/L (136-145); TOTAL BILIRUBIN 3.9 mg/dL (<0.1-1.0); TOTAL PROTEIN 6.5 g/dL (6.4-8.2); TROPONIN-I LEVEL <0.06 ng/mL (<0.06)
[2018-01-21 12:48] LABS: ALKALINE PHOSPHATASE 886 U/L (46-116); BUN < 1.0 mg/dL (7-18); SGOT 505 U/L (15-37); SGPT 113 U/L (30-65)
[2018-01-21 13:02] LABS: HEMOGLOBIN 11.9 gm/dL (14.0-18.0)
[2018-01-21 13:04] LABS: HEMATOCRIT 35.9 % (42.0-52.0); MCH 32.6 pg (26.0-34.0); MCHC 33.2 g/dL (28.0-37.0); MCV 97.9 fL (80.0-100.0); MPV 9.3 fl. (7.2-11.1); NUCLEATED RBCS 0 /100WBC; PLATELET COUNT* 211 thou/uL (150-400); RBC 3.67 mil/uL (4.50-6.00); RDW-CV 20.1 % (10.5-14.5)
[2018-01-21 13:18] LABS: URINE BLOOD NEGATIVE (Negative); URINE CLARITY CLEAR; URINE COLOR YELLOW; URINE GLUCOSE-RANDOM NEGATIVE (Negative); URINE KETONES NEGATIVE (Negative); URINE LEUKOCYTES-REFLEX NEGATIVE (Negative); URINE NITRITE-REFLEX NEGATIVE (Negative); URINE PROTEIN TRACE (Negative); URINE UROBILINOGEN 0.2 E.U./dl (0.2-1.0)
[2018-01-21 13:22] LABS: ICTOTEST (BILI CONFIRMATORY) Positive (Negative); URINE BILIRUBIN 2+ (Negative)
[2018-01-21 13:27] LABS: ABSOLUTE LYMPHOCYTES 1.7 thou/uL (0.8-5.3); ABSOLUTE MONOCYTES 1.4 thou/uL (0.0-1.2); ABSOLUTE NEUTROPHILS 6.9 thou/uL (1.6-8.1); ANISOCYTOSIS 1+; PLATELET ESTIMATE ADEQUATE; POIKILOCYTOSIS 1+
--- NOTE | 2018-01-21 16:01 | EKG ---
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 : 1980 Requested By: Jayesh Shah Order Number: [id number] Reading MD: Cruz Comer Measurements Intervals [place] Rate: 135 P: 13 UT: 119 QRS: 69 QRSD: 81 T: 31 QT: 311 QTc: 467 Interpretive Statements Sinus tachycardia Probable left atrial enlargement Borderline low voltage, extremity leads Compared to ECG 11/05/2017 16:16:55 No significant changes Electronically Signed On 01-21-2018 16:01:18 CDT by Cruz Comer [email or web address] <ELECTRONICALLY SIGNED> By: Cruz Comer MD, FACC 01/21/18 1601 1116 1116 Cruz Comer MD, [facility] /EPI
[2018-01-21 18:26] VITALS: BP 149/92
--- NOTE | 2018-01-21 18:56 | NUR ---
PT ARRIVED TO THE UNIT AT 1850. PT ORIENTED TO UNIT AND SERVICES. PT A&O X4 AND IRRITABLE. PT C/O ABD PAIN. ADMITING DR BOYCE FOR ORDERS. PT VERBALIZED UNDERSTANDING OF ADMISSION TEACHING. CRITICAL LACTIC CALLED TO DR GRIDER. NO NEW ORDERS RECIEVED. NURSING WILL CONTINUE TO MONITOR.
[2018-01-21 20:00] VITALS: BP 141/91
[2018-01-22] VITALS: BP 115/74
[2018-01-22 04:00] VITALS: BP 126/79
--- NOTE | 2018-01-22 04:16 | NUR ---
ASSUMED PT CARE AT 1930, PT IS A&OX4, PT IS TRACING ST ON THE MONITOR, ON RA SATTING MID TO HIGH, IVF INFUSING PER MAR. CIWAS CHARTED. PRN MEDICATIONS GIVEN PER MAR. PT HAS A 24 URIN IN PROGRESS AT THIS TIME. BED IN LOW POSITION, CALL LIGHT IN REACH, BED ALARM ON, YELLOW ARM BAND AND SOCKS IN [place], HOURLY ROUNDING COMPLETED FOR PT SAFETY.
[2018-01-22 08:44] VITALS: BP 149/99
[2018-01-22 11:53] VITALS: BP 130/92
--- NOTE | 2018-01-22 13:15 | NUR ---
CM ATTEMPTED TO SPEAK TO THE PATIENT TO ASSESS FOR DISCHARGE PLANNING NEEDS AND TO DISCUSS SUBSTANCE ABUSE RESOURCES. PATIENT RESTING WITH EYES CLOSED AT THIS TIME. CM WILL ATTEMPT TO SEE THE PATIENT AT ANOTHER TIME. CM WILL REMAIN AVAILABLE TO ASSIST AND FOLLOW NEEDED.
[2018-01-22 15:49] VITALS: BP 114/86
--- NOTE | 2018-01-22 18:00 | NUR ---
PT GIVEN PAIN AND AXIETY MEDS ORDERED. PT PLEASANT AND COOPERATIVE. URINE TEA COLORED. ST ON MONITOR, HR 110'S. CURRENT CIWA 11. PT ABLE TO MAKE NEEDS KNOWN, CALL LIGHT IN REACH
[2018-01-22 19:13] LABS: IgA 890 mg/dL (90-386); IgG 914 mg/dL (700-1600); IgM 65 mg/dL (20-172)
[2018-01-22 20:00] VITALS: BP 115/73
[2018-01-23] VITALS: BP 113/72
[2018-01-23 04:00] VITALS: BP 101/62
--- NOTE | 2018-01-23 04:08 | NUR ---
ASSUMED PT CARE AT 1930, PT IS A&OX4, PT IS TRACING ST ON THE MONITOR, ON RA PT HASD IVF INFUSING PER NOV. CIWAS COMPLETED CHARTED. PT C/O SOME GENERALIXED PAIN THIS SHFIT, PRN PAIN MEDICATIOSN GIVEN PER NOV. PT SLEPT ON AND OFF THROUGHOUT THE SHIFT. BED IN LOW POSITION, CALL LIGHT IN REACH, YELLOW ARM BAND AND SOCKS IN PLACE, HOURLY ROUNDING COMPLEETD FOR PT SAFETY. 24 HOUR COMPLETED AND SENT TO LAB AT 2245.
[2018-01-23 08:00] VITALS: BP 105/69
--- NOTE | 2018-01-23 08:00 | NUR ---
ASSUMED CARE OF PT ASSESSED AND DOCUMENTED. PT IS ON CARDIAC MONITER TRACING ST HR 118. PT IS A&O AND C/O PAIN IN HIS FEET RATED A 9 ON THE PAIN SCALE DESCRIBED BURNING AND STINGING. VSS WNL. PT IS AFEBRILE. PT IS ON ROOM AIR WITH COARSE SOUNDS NOTED IN LLBASE. PT HAD A PRODUCTIVE COUGH WITH STRINGY GREEN SPUTUM. PT HAS NOTED TREMORS IN BL HANDS. BED IS IN LOW POSTION CALL LIGHT IS IN REACH. WM.
[2018-01-23 08:50] LABS: ANION GAP 12 mmol/L (7-16); CALCIUM 8.2 mg/dL (8.5-10.1); CHLORIDE 100 mmol/L (98-107); CO2 27 mmol/L (21-32); CREATININE 0.6 mg/dL (0.6-1.3); GLUCOSE 91 mg/dL (70-99); SODIUM 139 mmol/L (136-145)
[2018-01-23 08:51] LABS: BUN < 1 mg/dL (7-18)
[2018-01-23 08:52] LABS: POTASSIUM 2.7 mmol/L (3.5-5.1)
--- NOTE | 2018-01-23 11:00 | NUR ---
CONTINUE TO FOLLOW, MET WITH PT. HE IS STILL LIVING WITH HIS MOM AND STEPDAD. STATES NOT PLANNING TO RETURN TO WORK 'UNTIL THIS IS DONE.' REFERRED TO GETTING BETTER. REMINDED PT THAT CM HAD MET WITH HIM DURING HOSPITAL STAY IN NOV AND DISCUSSED ALCOHOL REHAB SOURCES, HE STATED THAT HE HAD NOT CONTACTED ANY YET. HE DID STATE HE WAS INTERESTED IN DOING THAT NOW. STRESSED THAT HE HAS TO MAKE THE PHONE CALLS AND ESTABLISH THE CARE. HE VERBALIZED UNDERSTANDING. GAVE LIST FROM WEBSITE. ONLY INPT FACILITY IS [facility]. HE STATED HE WENT THERE 8 YRS AGO. WILLING TO CONSIDER AGAIN. ENCOURAGED HIM TO CALL SOON AND DISCUSS CARE WITH THEM. WILL FOLLOW
[2018-01-23 12:00] VITALS: BP 113/74
[2018-01-23 16:00] VITALS: BP 113/73
--- NOTE | 2018-01-23 16:44 | CON ---
[address] [address] CONSULTATION Name: MARIA M BETTS Room: [address] IN M.R.#: [id number] Admission: 01/21/18 Attend Phys: Alessandra Evans Discharge: Date of : 80 Report #: [id number] THIS REPORT FOR: //name// CC: Bob Cast DATE OF SERVICE: 01/23/2018 CONSULTING PHYSICIAN: Dr. Cast. REASON FOR CONSULTATION: Tachycardia, to rule out pheochromocytoma. CHIEF COMPLAINT: The patient was having generalized weakness. HISTORY OF PRESENT ILLNESS: This is a 37-year-old male with history of alcohol abuse, who came in complaining of generalized weakness and also reported that he drinks heavily. The patient was mildly hypertensive, but he was tachycardic yesterday, but his tachycardia is better. He was given IV fluids as well as thiamine and folic acid. Dr. Cast was concerned that he could be having pheochromocytoma. His blood pressure is running actually towards the lower side now. The patient is still feeling pretty tired. His kidney function is normal. His creatinine is 0.6 today. He also had elevated AST and ALT when he came in and his lactic acid was extremely high at 14, but it has gotten better to 4.1 as of yesterday. REVIEW OF SYSTEMS: The patient was feeling generalized weakness, still not feeling good, very fatigued and other review of systems were done and they were negative. PAST MEDICAL HISTORY: Includes a history of alcohol abuse and dependence and also has history of kidney stones. Also, has a history of gout and esophagitis and upper GI bleeding. PAST SURGICAL HISTORY: Includes history of left shoulder surgery. ALLERGIES: MEPERIDINE, BUTORPHANOL, and KETOROLAC. FAMILY HISTORY: Tobacco abuse in the family. SOCIAL HISTORY: He is a current everyday smoker and he uses alcohol on a daily basis and also uses marijuana. HOME MEDICATIONS: None. PHYSICAL EXAMINATION: VITAL SIGNS: Blood pressure is 105/69, heart rate is 116, [place] [address] CONSULTATION Name: MARIA M BETTS Room: [address]#: [id number] Admission: 01/21/18 Attend Phys: Alessandra Evans Discharge: Date of : 80 Report #: [id number], temperature 36.3 and pulse ox is 97% on no oxygen. GENERAL: He is awake, alert, oriented. HEAD, EYES, EARS NOSE AND THROAT: Mucous membranes are moist. NECK: No JVD. CHEST: Clear to auscultation bilaterally. No crackles or wheezing heard. CARDIOVASCULAR: S1, S2 normal. No murmurs heard. ABDOMEN: Soft, nondistended, nontender. Bowel sounds are present. EXTREMITIES: He has no lower extremity edema and symmetrical extremity. NEUROLOGICAL FUNCTION: Gross neurological function seems to be intact. PSYCHIATRIC: Mood and affect seems to be normal. He is mildly anxious, though. LABORATORY DATA: From today, sodium is 139, potassium is 2.7, creatinine 0.6. Lactic acid was 4.1 yesterday and AST, ALT on admission were high and there were reviewed and other labs were reviewed. IMAGING: Abdominal MRI, chest x-ray and abdominal pelvic CT were reviewed. ASSESSMENT AND PLAN: 1. History of alcohol dependence and alcohol withdrawal: Likely his tachycardia and hypertension was because of alcohol withdrawal. His heart rate is now coming down and his blood pressure is running to the lower side. 2. Suspicion for pheochromocytoma: My suspicion for pheochromocytoma is quite low. The patient's blood pressure is running towards the lower side. Likely alcohol withdrawal explains his tachycardia. Abdominal MRI ruled out any adrenal masses. A plasma metanephrines and normetanephrines have been ordered and will be followed. 3. Hypokalemia: It has been replaced. Please check a magnesium level as well and replace accordingly. 4. Generalized weakness: This is likely because of alcohol withdrawal. 5. Elevated transaminases: Likely because of alcoholic hepatitis. Would defer this to primary. 6. Elevated lactic acid: Likely because of decreased clearance from liver. It had improved as of yesterday. Thank you for this consultation. We will follow along with you. <ELECTRONICALLY SIGNED> By: Abiola Bryant MD 01/23/18 1644 0916 [id number] Bryant MD /nt
--- NOTE | 2018-01-23 16:58 | NUR ---
PT HAS RESTED IN HIS ROOM AND TALKED ON THE PHONE. N.O. FOR ELECTROLYTE PROTOCOL. RESULTS PENDING. PT HAS C/O FEET PAIN. MEDICATION GIVEN. EDUCATION GIVEN ON DEMAND. HOURLY ROUNDING COMPLETE.
[2018-01-23 20:10] VITALS: BP 117/66
[2018-01-24] VITALS: BP 116/68
[2018-01-24 04:00] VITALS: BP 109/75
[2018-01-24 04:50] LABS: INR 1.2; PROTIME 11.9 Seconds (9.20-11.50)
[2018-01-24 05:48] LABS: CALCIUM 8.2 mg/dL (8.5-10.1); CREATININE 0.6 mg/dL (0.6-1.3); POTASSIUM 3.7 mmol/L (3.5-5.1); TOTAL BILIRUBIN 5.8 mg/dL (<0.1-1.0)
[2018-01-24 05:49] LABS: ALBUMIN 1.4 g/dL (3.4-5.0); TOTAL PROTEIN 5.9 g/dL (6.4-8.2)
--- NOTE | 2018-01-24 07:05 | NUR ---
A&O X4 IMPULSIVE AT TIMES. FLUIDS STOPED ON THIS SHIFT. PAIN MANAGEMENT. ST ON THE MONITOR. APPROX 0330 UNWITNESSED FALL, PT REPORTS DID NOT HIT HEAD AND THAT HE JUST FELT WEEK AND WENT TO HIS KNEES. POST FALL ASSESMENT COMPLETE. RA. PAIN REPORTED IN KNEES PARTCIAL RELIEF NOTED WITH MEDICATION. VITALS WNL. SEE MAR. SEE CHARTING. FALL PRECATUIONS IN PLACE. HOURLY ROUNDING FOR SAFETY.
[2018-01-24 07:45] VITALS: BP 119/84
[2018-01-24 12:00] VITALS: BP 107/71
--- NOTE | 2018-01-24 13:20 | NUR ---
CONTINUE TO FOLLOW. MET WITH PT. STATES FEELING IMPROVED. PT DENIES MAKING ANY CALLS YET TO INQUIRE ABOUT [facility] ETOH REHAB. OFFERED TO ASSIST AND PT DECLINED STATING HE HAS FRIENDS HE WANTS TO TALK WITH ABOUT IT AND WANTS TO DO SOME 'RESEARCH.' WILL FOLLOW
[2018-01-24 16:00] VITALS: BP 110/80
--- NOTE | 2018-01-24 18:46 | NUR ---
PATIENT RESTING IN BED. PATIENT IS UP STANDBY ASSIST. PATIENT WORKED WITH PT/OT THIS AFTERNOON. PATIENT HAS COMPLAINTS OF PAIN TO BILATERAL FEET AND LEGS, TREATED ADEQUATELY WITH OXY IR. PATIENT HAS GOOD APPETITE. PATIENT DENIES ANY NEEDS AT THIS TIME. CALL LIGHT WITHIN REACH. WILL CONTINUE TO MONITOR.
[2018-01-24 20:00] VITALS: BP 113/77
[2018-01-25] VITALS: BP 112/81
[2018-01-25 04:00] VITALS: BP 112/76
--- NOTE | 2018-01-25 04:10 | NUR ---
ASSUMED PT CARE AT 1930, PT A&OX4, PT IS TRACING ST ON THE MONITOR, ON RA SATTING MID TO HIGH 90'S. PT WAS GIVEN PO ATIVAN ONCE THIS SHIFT. CIWA CHARTED. PT C/O PAIN, PRN PAIN MEDICATIONS GIVEN PER NOV. WITH RELIEF. BED IN LOW POSITION, CALL LIGHT IN REACH, BED ALARM ON, YELLOW ARM ABND AND SOCKS IN PLACE. HOURLY ROUNDING COMPLETED FOR PT SAFETY.
[2018-01-25 07:35] VITALS: BP 108/68
--- NOTE | 2018-01-25 08:08 | NUR ---
RECIEVED REPORT FROM ROLAND AND ASSUMED CARE OF PT @ 4663.PT IS A/O X4,VSS,TRACING SINUS TACH ON MONITOR.LUNG SOUNDS ARE CLEAR.PT STATES LAST BM WAS YESTERDAY.IV RIGHT FOREARM PATENT AND SALINE LOCKED.PT IS CALM AND COOPERATIVE WITH C/O MILD ANXIETY.PT DENIES PAIN AT TIME OF ASSESSMENT.UP WITH ONE ASSIST TO BATHROOM.CIWA COMPLETED.PT LEFT RESTING IN BED WITH CALL LIGHT AND FALL PRECAUTIONS IN PLACE.WILL CONTINUE TO MONITOR.
[2018-01-25 11:30] VITALS: BP 106/77
[2018-01-25] MEDS ORDERED: OXYCODONE HCL 55 MG PO (17:29)
[2018-01-25] MEDS ORDERED: MEGESTROL400 MG/11 PO (17:30)
[2018-01-25 17:32] VITALS: BP 106/77
--- NOTE | 2018-01-25 17:49 | NUR ---
PT OK FOR D/C.PAPERWORK AND SCRPITS GONE OVER AND GIVEN TO PT.HEART MONITOR REMOVED AND RETURNED TO NURSING STATION.IV REMOVED.ALL PERSONAL BELONGINGS TAKEN. PT WHEELED OUT BY NURSING STAFF TO PERSONAL VEHICLE.
[2018-01-26 12:05] LABS: METANEPHRINE-PL 35 pg/mL (0-62); NORMETANEPHRINE - PL 140 pg/mL (0-145)
[2018-01-26 18:08] LABS: DOPAMINE < 30 pg/mL (0-48); EPINEPHRINE 92 pg/mL (0-62); NOREPINEPHRINE 765 pg/mL (0-874)
[2018-01-31 16:11] LABS: METANEPHRINE-PL 40 pg/mL (0-62); NORMETANEPHRINE - PL 297 pg/mL (0-145)
== END 2018-01-25 18:13 | disposition home or self-care (01) | DRG 433 ==
LOC: M.ERS 09:25 → M.TBA-ER 13:53 → M.2W 18:52
PROVIDERS: Emergency Medicine Emergency Medical Services; Internal Medicine; ADMIT Internal Medicine
DX: K70.10 Alcoholic hepatitis without ascites (principal); E87.2 Acidosis; M10.9 Gout, unspecified; E87.6 Hypokalemia; R76.8 Other specified abnormal immunological findings in serum; F10.229 Alcohol dependence with intoxication, unspecified; F17.210 Nicotine dependence, cigarettes, uncomplicated; Z87.442 Personal history of urinary calculi; Z88.8 Allergy status to other drugs, medicaments and biological substances; Z81.2 Family history of tobacco abuse and dependence